=== PATIENT | male | born 1950 | race Caucasian/White ===

== ENCOUNTER 2017-08-19 17:36 | Emergency (ER) | payer BC ==
[~2017-08-19] VITALS: Ht 167.6 cm; Wt 68.0 kg
--- NOTE | 2017-08-19 18:40 | Emergency Room Report ---
History of Present Illness Time Seen by [id number] Presenting Problem in Triage Pt arrived:Walked Presenting Problem:PT C/O LEFT EYE RED, ITCHING, BURNING X2 DAYS. 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 N Clinical Suspician of Infection? N Mental Status: 1 - Regular (Normal Baseline) Sepsis Risk:Low Sepsis Risk Have you (or family members/close friends) recently traveled outside the [place]? N If Yes, where/when: Have you had exposure to infectious disease within the past month? TB? Other? Specify: Patient complains of left eye redness and moderate burning no radiation for the past 2 days has some purulent drainage from his medial canthi. He denies any other complaints he states he hasn't has blood pressure checked in 2 years. He states back in the 90s she was on blood pressure medicine but he lost weight and then no longer needed to be on blood pressure medicine. No headache no chest pain or shortness of breath no abdominal pain. No fevers or chills no other complaints except for left eye itching and discharge. ALLERGIES Coded Allergies: No Known Allergies (08/19/17) History Medical History General Angina: No RI: No Hypertension? Yes Hyperlipidemia? No CHF? No COPD? No Asthma? No CVA? No Seizures? No Diabetes? No GB Disease: No MRSA? No TB? No Cancer? No Immunization Hx DT/Tetanus Unknown Surgical Hx Previous Surgery?Y CYST RIGHT WRIST Social History Smoking Hx Smoker: Current Every Day Smoker Tobacco: Yes Type Cigarettes Packs/day < 1 Pack Alcohol Alcohol: No Review of Systems All Other Systems Reviewed and Negative Physical Exam Vital Signs Vital Signs Date Time Temp Pulse Resp B/P Pulse O2 O2 Flow FiO2 Ox Delivery Rate 08/19 1924 64 20 204/101 96 08/19 181 99.2 72 20 217/113 98 08/19 174 99.2 72 20 217/113 98 General Appearance: Nontoxic Head: Normocephalic, without obvious abnormality, atraumatic. Eyes: Left conjunctiva/corneas RIGHT conjunctiva has injection consistent with conjunctivitis the medial canthi has some yellow purulent discharge ENT: Mucous membranes moist. Neck: No jugular venous distention. Cardiac: regular rate and rhythm Lungs: Clear to auscultation bilaterally Abdomen: Nontender, Nondistended, positive bowel sounds, no rebound : No CVA tenderness Extremities: no edema Musculoskeletal: No chest wall tenderness Skin: No rashes or lesions to exposed skin. Neurologic: Alert. No gross focal deficits Psychiatric: Normal affect (Rajat AGUERO, Neo) General Appearance normal appearance Respiratory Status No: respiratory distress. Cardiovascular normal exam Neurologic alert Medical Decision Making LABS/Meds/Orders Pt receiving controlled substance in ED? No Comment cxr nad per radiology Results/Orders Laboratory Tests 08/19/171904: Sodium 139, Potassium 3.8, Chloride 104, Carbon Dioxide 26, BUN 16, Creatinine 1.3, Estimated Creat Clear 55, Estimated GFR (MDRD) 56, Glucose 80, Calcium 9.0, Total Bilirubin 0.4, AST 11 L, ALT 18, Alkaline Phosphatase 78, Troponin I < 0.02, Total Protein 7.9, Albumin 4.0, Globulin 3.9 H, Albumin/Globulin Ratio 1.0 L, WBC 9.1, RBC 5.91, Hgb 17.7, Hct 54.8 H, MCV 92.8, RDW 13.4, Plt Count 214, MPV 9.4, Gran % 62.3, Gran # 5.7, Lymphocytes % 24.0, Monocytes % 10.7 H, Eosinophils % 2.2, Basophils % 0.7, Lymphocytes # 2.2, Monocytes # 1.0, Eosinophils # 0.2, Basophils # 0.1, PUBS MCHC 32.2, MCH 29.9 Current Medication Orders Sig/Jani Start time Last Medication Dose Route Stop Time Status Admin Miscellaneous 0 .STK-MED ONE 08/19 1958 DC XX Sodium Chloride 10 ML PRN PRN 08/19 1930 AC IV 08/20 1922 Clonidine HCl 0 .STK-MED ONE 08/19 1921 DC .ROUTE Clonidine HCl 0.1 MG ONCE ONE 08/19 1915 DC 08/19 PO 08/19 Orders Procedure Date/time Status IV SALINE LOCK 08/19 1922 Active ELECTROCARDIOGRAM REQUEST 08/19 1841 Active TROPONIN I 08/19 1841 Complete CBC WITH AUTO DIFF 08/19 1841 Complete CHEM 12 PROFILE 08/19 1841 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 aorta Departure Departure Time of Disposition 2003 Disposition DC Home or Self Care(routine) Clinical Impression Primary Impression: HTN (hypertension) Qualifiers: Hypertension type: essential hypertension Qualified Code: I10 - Essential (primary) hypertension Secondary Impressions: [place] eye Qualifiers: Laterality: left Qualified Code: H10.022 - Other mucopurulent conjunctivitis, left eye Condition STABLE Patient Instructions DI for Conjunctivitis, High Blood Pressure Additional Instructions you have to followup with a Primary MD for BP treatment. return if worse. Discharge Counseling Counseled pt/family regarding diagnosis, test results, medications/RX, home care, follow up needs Prescriptions Current Visit Scripts SULFACETAMIDE 10% SOLN (Sulfacetamide Sodium 10% Ophth Soln) 1-2 DROP OP Q6 #1 BOT TO AFFECTED EYE(S) LISINOPRIL (Lisinopril) 10 MG PO DAILY #10 TAB ED Critical Care Critical Care No at 2006
[2017-08-19 19:23] LABS: HEMOGLOBIN 17.7 g/dL (14.1-18.0); LYMPH # 2.2 K/mm3 (0.7-4.5)
[2017-08-19 19:27] LABS: BUN 16 mg/dL (7-18); GFR (ESTIMATED) 56 ML/MIN (>60)
[2017-08-19] MEDS ORDERED: SULFACETAMIDE S15 M1 OP (19:39)
--- NOTE | 2017-08-19 19:47 | RADIOLOGY REPORT PS360 ---
CHEST(2 VIEWS-NOT PORTABLE) Ordering physician: Neo Earl MD Age: 66 years Male INDICATION: chest symptomshtn hypertension. Chest discomfort PROCEDURE: CHEST(2 VIEWS-NOT PORTABLE) FINDINGS: No prior Lungs well expanded and clear with nothing definitely acute. No pneumothorax. No pleural effusion. Heart upper normal size. Normal pulmonary vascularity. Mildly tortuous aorta may reflect underlying hypertension fullness right peritracheal region most likely reflects tortuous innominate vessel as well. Hilar and mediastinal structures otherwise unremarkable. Chest wall unremarkable. T-spine intact. IMPRESSION ----- Nothing definitely acute. Lungs clear. Borderline cardiomegaly. Mildly tortuous aorta and great vessels suggested
[2017-08-19] MEDS ORDERED: LISINOPRIL 10MG10 MG PO (20:06)
[2017-08-19 20:14] VITALS: BP 185/100
--- OUTSIDE RECORDS SUMMARY | 2017-08-27 16:07 | External Medical Summary Rpt | CCD ---
Author Author [employer] Organization [employer] Address Unknown Phone Unavailable Purpose Continuity of Care Document - through 2016
--- OUTSIDE RECORDS SUMMARY | 2017-08-27 16:07 | External Medical Summary Rpt | CCD ---
Demographics Preferred Language Sinhala Marital Status Unknown Anabaptism Affiliation Unknown Race Unknown Ethnic Group Unknown Author Author , [employer] Organization [employer] Address Unknown Phone [email or web address] Immunization Name Date Rout CVX Reac Dose Comm Prov Is Faci e tion ent ider Refu lity Give sed n Td 03-0 9 999 Hist H149 No H149 (karla 5-19 [facility] lt), 97 al Info adso rmat rbed ion - Sour ce Unsp ecif ied
--- OUTSIDE RECORDS SUMMARY | 2017-08-27 16:07 | External Medical Summary Rpt | CCD ---
Demographics Preferred Language Yoruba Marital Status Unknown Faith Affiliation Unknown Race Unknown Ethnic Group Unknown Author Author , [employer] Organization [employer] Address Unknown Phone [email or web address] Immunization Name Date Rout CVX Reac Dose Comm Prov Is Faci e tion ent ider Refu lity Give sed n Td 03-0 9 999 Hist H149 No H149 (karla 5-19 [facility] lt), 97 al Info adso rmat rbed ion - Sour ce Unsp ecif ied
== END 2017-08-19 20:15 | disposition home or self-care (01) ==
LOC: UTC 17:36 → ER 17:43
PROVIDERS: Emergency Medicine
DX: I10 Essential (primary) hypertension (principal); H10.022 Other mucopurulent conjunctivitis, left eye